=== PATIENT | male | born 1990 | race Caucasian/White ===

== ENCOUNTER 2018-03-08 11:18 | Emergency (ER) | payer MEDICAID ==
[~2018-03-08] VITALS: Ht 185.4 cm; Wt 113.4 kg
--- NOTE | 2018-03-08 11:39 | NUR ---
PATIENT WHEELCHAIR ASSISTED TO BED 7 AT THIS TIME.
[2018-03-08 11:42] VITALS: BP 158/82
[2018-03-08] MEDS ORDERED: ONDANSETRON 4 MG ODT PO ONE (11:45)
--- NOTE | 2018-03-08 11:46 | NUR ---
Patient being evaluated by physician at bedside.
--- NOTE | 2018-03-08 11:55 | NUR ---
PATIENT BIB MOTHER DUE TO VOMITTING BLOOD, MOTHER STATED PT HAD UPPER TONGH SURGERY ON DECEMBER 2017, AFTER THAT HE HAS BEEN SORE THROAT, COUGHING CAUSED STICHES OPEN, AND STARTED VOMITTING BLOOD TODAY. AAOX4 WITH UNSTEADY GAIT, EYES CLOSED, DIZZINESS NOTED; LUNGS CLEAR BL; HR EVEN AND REGULAR; PT DENIES ANY FEVER, CP, SOB, AT THIS TIME; PATIENT STATES PAIN OF 10/10 AT THIS TIME; VSS; PATIENT POSITIONED FOR COMFORT; HOB ELEVATED; BEDRAILS UP X2; BED DOWN. ER MD MADE AWARE OF PT STATUS.
[2018-03-08] MEDS ORDERED: DICYCLOMINE HCL LIQUID 20 MG, ALUMINUM HYD/MAG/SIMETHICONE 30 ML, LIDOCAINE VISCOUS 2% ... PO ONE ×3 (13:05)
[2018-03-08 13:43] VITALS: BP 148/80
== END 2018-03-08 13:43 | disposition home or self-care (01) ==
LOC: MED 11:18
DX: R11.2 Nausea with vomiting, unspecified (principal); E11.9 Type 2 diabetes mellitus without complications; I10 Essential (primary) hypertension; Z88.1 Allergy status to other antibiotic agents
CPT/HCPCS: 99283; Q0162